=== PATIENT | male | born 1990 | race Caucasian/White ===

== ENCOUNTER 2022-09-20 11:26 | Emergency (ER) | payer MEDICARE, MEDICAID, SELFPAY ==
[2022-09-20] VITALS (8 sets, daily range): BP systolic 93–133; BP diastolic 64–81; PULSE 49–81; RESP 16; TEMP 36.4–36.9; O2SAT 94–100; BMI 26.6
--- NOTE | 2022-09-20 11:42 | PC.NURSE ---
DR BENITES AT BEDSIDE
--- NOTE | 2022-09-20 11:43 | HMH.EDGENADL ---
Discharge Plan Disposition Patient Disposition: Home, Self-Care Condition: Good Referrals Follow up/Referrals: Eddie Lara MD [Primary Care Provider] - See instructions Activity Restrictions/Add. Instructions Additional Instructions/Restrictions: Do not vape THC. Follow-up with primary care provider, call for appointment. Clinical Impressions Clinical Impression: Cannabis abuse with intoxication Discharge ED Provider: Ivan Torres General Adult HPI General Chief complaint: Altered Mental Status Stated complaint: AMS Time Seen by Provider: 09/20/22 11:30 History of Present Illness HPI narrative: History obtained from patient and state appointed guardian. He is brought in by ambulance from [facility] where he has apparently been for the past 3 to 4 months. Guardian states that yesterday evening he was impaired, falling asleep, could not stay awake, falling asleep in his food. He was sent out for drug screen which apparently showed Valium . He is also on Suboxone. He denies taking any other drugs except for Suboxone. He denies taking Valium or other benzodiazepines. He states he does not feel ill. He has no pain. He does feel drowsy. Related Data Allergies Allergy/AdvReac Type Severity Reaction Status Date / Time No Known Allergies Allergy Verified 09/20/22 14:15 [facility] Disclaimer: The information contained in this section may have been updated after the patient was seen, as this information can be updated by other users. Social History Smoking Status: Unknown if ever smoked ROS Obtained: Yes All systems reviewed & no additional complaints except as documented Constitutional Constitutional: Denies fever(s), Denies headache(s), Denies weakness and Reports other (Drowsy) ENT Ears, Nose, Mouth, and Throat: Denies headache(s), Denies nasal discharge and Denies sore throat Cardiovascular Cardiovascular: Denies chest pain Respiratory Respiratory: Denies shortness of breath and Denies cough Gastrointestinal Gastrointestingal: Denies abdominal pain, constipation, diarrhea or vomiting Genitourinary Male Genitourinary: Denies difficulty urinating and Denies flank pain Musculoskeletal Musculoskeletal: Denies numbness Neurologic Neurologic: Denies headache(s), Denies numbness and Denies weakness Physical Exam General General appearance: alert, in no apparent distress and other (Drowsy, speech mildly slurred. Lips and mucous membranes dry.) Head Head exam: atraumatic and normocephalic Eye Eye exam: Present normal appearance, PERRL and EOMI ENT ENT exam: Present mucous membranes dry Neck Neck exam: Present normal inspection and trachea midline Chest Chest inspection: Present normal inspection and symmetric chest wall rise Respiratory Respiratory exam: Present normal lung sounds bilaterally; Absent respiratory distress Cardiovascular Cardiovascular exam: Present regular rate, normal rhythm and normal heart sounds Abdominal Exam Abdominal exam: Present soft and normal bowel sounds; Absent distention, tenderness, guarding, rebound or rigidity Extremities Exam Extremities exam: Present normal inspection Neurological Exam Neurological exam: Present alert and oriented X3 Psychiatric Psychiatric exam: Present normal affect and normal mood Skin Skin exam: Present warm and dry Medical Decision Making Chuck Inquiry Pt receiving controlled substance: No Vital Signs: 09/20/22 11:26 09/20/22 12:00 09/20/22 12:30 Temperature 98.5 F Temperature Source Oral Pulse Rate 68 81 Pulse Rate [Radial] 70 Respiratory Rate 16 16 Blood Pressure 99/66 L 100/78 L Blood Pressure [Right Arm] 131/75 Blood Pressure Mean 82 82 Blood Pressure Mean [Right Arm] 93 Blood Pressure Source [Right Arm] Automatic Cuff 02 Sat by Pulse Oximetry 95 94 L 97 Oxygen Delivery Method Room Air 09/20/22 13:01 09/20/22 14:00 Temperature Temperature Source Pulse Rate 61 49 L Pulse Rate [R
[2022-09-20 12:06] LABS: Basophils # 0.1 K/mm3 (0-0.2); Basophils % 0.9 % (0.1-2.0); Eosinophils # 0.3 K/mm3 (0.0-0.4); Eosinophils % 3.7 % (0.1-12.0); Hematocrit 51.2 % (42.0-52.0); Hemoglobin 16.8 g/dL (14.1-18.0); Lymphocytes # 1.8 K/mm3 (0.7-4.5); Mean Corpuscular HGB Conc 32.7 g/dL (31.8-35.4); Mean Corpuscular Hemoglobin 30.8 pg (27.0-31.2); Mean Platelet Volume 7.8 fl (7.4-10.4); Monocytes # 0.5 K/mm3 (0.1-1.0); Monocytes % 6.3 % (1.7-9.3); Neutrophils # 5.1 K/mm3 (1.8-7.8); Neutrophils % 66.2 % (37.0-80.0); Platelet Count 199 K/mm3 (142-424); Red Blood Count 5.45 M/mm3 (4.60-6.20); Red Cell Distribution Width 12.6 % (11.5-17.5); White Blood Count 7.8 K/mm3 (4.8-10.8)
--- NOTE | 2022-09-20 12:13 | PC.NURSE ---
PT PROVIDED URINAL AT THIS TIME
[2022-09-20 12:30] LABS: Alanine Aminotransferase 95 U/L (12-78); Albumin Level 4.3 g/dl (3.5-5.0); Albumin/Globulin Ratio 1.5 (1.1-1.8); Alkaline Phosphatase 76 U/L (38-126); Anion Gap 9.1 mEq/L (5-15); Aspartate Amino Transferase 60 U/L (17-59); Bilirubin,Total 0.7 mg/dl (0.2-1.3); Blood Urea Nitrogen 13 mg/dl (9-20); Carbon Dioxide 30 mmol/L (22.0-30.0); Chloride 105 mmol/L (98-107); Creatinine Clearance Estimated 156 mL/min (50-200); Estimated Glomerular Filt Rate 131 ml/min (>60); GFR (African American) 158 ML/MIN (>60); Globulin 2.8 g/dL (1.3-3.2); Glucose 98 mg/dl (74-100); Potassium 4.2 mmoL/L (3.5-5.1); Sodium 139 mmol/L (136-145); Total Protein,Serum 7.1 g/dl (6.3-8.2)
[2022-09-20 12:32] LABS: Acetaminophen < 10 ug/ml (10-30); Salicylate < 1.0 mg/dL (2.0-20.0)
[2022-09-20 12:34] LABS: Ethyl Alcohol < 10 mg/dl (0-10)
[2022-09-20 12:44] LABS: Microscopic, Urine URINE MICROSCOPIC (MICROSCOPIC)
[2022-09-20 13:05] LABS: Appearance,Urine CLEAR (Clear); Blood, Urine Negative (Negative); Color,Urine YELLOW (Yellow); Glucose,Urine (UA) Negative (Negative); Ketones,Urine Negative (Negative); Leukocyte Esterase,Urine Negative (Negative); Nitrate,Urine Negative (Negative); Protein,Urine Negative (Negative)
[2022-09-20 13:09] LABS: Barbiturates Screen,Urine Negative ng/ml (<200)
[2022-09-20 13:10] LABS: Benzodiazepines Screen,Urine Negative ng/ml (<200)
[2022-09-20 13:11] LABS: Amphetamine/Metha Screen,Urine Negative ng/ml (<1000); Cannabinoid Screen,Urine Positive ng/ml (<50)
[2022-09-20 13:12] LABS: Cocaine Screen,Urine Negative ng/ml (<300); Methadone Screen,Urine Negative ng/ml (<300)
[2022-09-20 13:13] LABS: Opiate Screen,Urine Negative ng/ml (<300)
[2022-09-20 13:14] LABS: Phencyclidine Screen,Urine Negative ng/ml (<25)
[2022-09-20 13:29] LABS: Bilirubin,Urine Negative (Negative)
[2022-09-20 13:30] LABS: Bacteria,Urine Trace /lpf; Squamous Epithelial Cell,Urine Occasional #/hpf (0-5)
--- NOTE | 2022-09-20 15:37 | PC.NURSE ---
DR BENITES AT BEDSIDE TO REEVALUATE PT
--- NOTE | 2022-09-20 15:38 | PC.NURSE ---
REGULAR TRAY REQUESTED FROM DIETARY
--- NOTE | 2022-09-20 15:46 | PC.NURSE ---
dietary brought lunch tray to patient
--- NOTE | 2022-09-20 15:47 | PC.NURSE ---
pt able to ambulate to hallway with no issues
--- NOTE | 2022-09-20 15:48 | PC.NURSE ---
[facility] CONTACTED AT THIS TIME FOR PICK-UP
--- NOTE | 2022-09-20 16:19 | PC.NURSE ---
[facility] called for pt transport, they advised he couldnt be transported by them due to being a state guardian and it was against the law.
--- NOTE | 2022-09-20 16:23 | PC.NURSE ---
state guardian called for pt transport and advised her that [facility] would not transport. they were going to call the facility and speak with them.
--- NOTE | 2022-09-20 16:59 | PC.NURSE ---
spoke to guardian via telephone. she called for pts update with transportation. informed her ombudsman was taking pt back to facility.
== END 2022-09-20 16:55 | disposition home or self-care (01) ==
PROVIDERS: Emergency Provider Emergency Medicine; PCP Emergency Medicine
DX: F12.129 Cannabis abuse with intoxication, unspecified (principal)
CPT/HCPCS: 80053; 80305; 80329; 81001; 85025; 96360; 99285

== ENCOUNTER 2022-09-21 09:23 | Emergency (ER) | payer MEDICARE, MEDICAID, SELFPAY ==
[2022-09-21 09:23] VITALS: BP 112/71; PULSE 61; RESP 16; TEMP 37.1; O2SAT 94; BMI 31.3
--- NOTE | 2022-09-21 09:37 | HMH.EDGENADL ---
Discharge Plan Disposition Chief Complaint: Recheck/Abnormal Lab/Rx Clinical Impressions Clinical Impression: Active substance abuse Discharge ED Provider: Daniel Brock General Adult HPI General Chief complaint: Recheck/Abnormal Lab/Rx Stated complaint: concern for overdose Time Seen by Provider: 09/21/22 09:25 History of Present Illness HPI narrative: 32-year-old male presents again with substance abuse. He was apparently at [facility] and acting a little bit spacey so they sent him in again. He was seen here yesterday for the same thing and was positive for marijuana. At this time he denies taking any new substances. He denies chest pain shortness of air fever or chills nausea vomiting abdominal pain or any other concerns. No suicidal or homicidal ideation. Related Data Allergies Allergy/AdvReac Type Severity Reaction Status Date / Time No Known Allergies Allergy Verified 09/20/22 14:15 [facility] Disclaimer: The information contained in this section may have been updated after the patient was seen, as this information can be updated by other users. Social History Smoking Status: Unknown if ever smoked alcohol intake: former current occupational status: unemployed Travel in the last 8 weeks: None ROS Obtained: Yes All systems reviewed & no additional complaints except as documented Constitutional Constitutional: Denies fatigue, Denies fever(s) and Denies headache(s) Eyes Eyes: Denies dry eyes ENT Ears, Nose, Mouth, and Throat: Denies headache(s) and Denies lip swelling Cardiovascular Cardiovascular: Denies dyspnea Respiratory Respiratory: Denies cough and Denies dyspnea Gastrointestinal Gastrointestingal: Denies heartburn Genitourinary Male Genitourinary: Denies flank pain Musculoskeletal Musculoskeletal: Denies joint stiffness and Denies muscle cramps Integumentary/Breasts Skin/Breast: Denies redness and Denies rash Neurologic Neurologic: Denies headache(s) Endocrine Endocrine: Denies fatigue Hematologic/Lymphatic Henatologic/Lymphatic: Denies easy bleeding Allergic/Immunologic Allergic/Immunologic: Denies lip swelling Physical Exam General General appearance: alert and in no apparent distress Eye Eye exam: Present PERRL and EOMI ENT ENT exam: Present normal exam and normal oropharynx Neck Neck exam: Present normal inspection Chest Chest inspection: Present symmetric chest wall rise Respiratory Respiratory exam: Present normal lung sounds bilaterally; Absent respiratory distress Cardiovascular Cardiovascular exam: Present regular rate and normal rhythm Abdominal Exam Abdominal exam: Present soft; Absent distention, tenderness, guarding, rebound, Baker's sign or tenderness at McBur[place]'s Point Rectal Exam Rectal exam: Present deferred Back Exam Back exam: Present normal inspection Neurological Exam Neurological exam: Present oriented X3, CN II-XII intact, normal gait and motor sensory deficit; Absent alert Psychiatric Psychiatric exam: Present normal affect and normal mood Skin Skin exam: Present warm, dry and intact Lymphatic Lymphatic Findings: no adenopathy Medical Decision Making Medical Records Medical records reviewed: Yes I reviewed the patient's medical records. Chuck Inquiry Pt receiving controlled substance: No Chuck was queried for this patient: No Vital Signs: 09/21/22 09:23 09/21/22 14:22 Temperature 98.7 F Temperature Source Oral Pulse Rate 71 Pulse Rate [Right Radial] 61 Respiratory Rate 16 16 Blood Pressure 125/79 Blood Pressure [Right Arm] 112/71 Blood Pressure Mean 87 Blood Pressure Mean [Right Arm] 84 Blood Pressure Source [Right Arm] Automatic Cuff Blood Pressure Position [Right Arm] Sitting 02 Sat by Pulse Oximetry 94 L 100 Oxygen Delivery Method Room Air Room Air Lab Data Lab Results 09/21/22 09:41: Urine Opiates Screen Negative, Urine Methadone Screen Negative, Ur [place]bit[place]
--- NOTE | 2022-09-21 09:49 | PC.NURSE ---
breakfast tray ordered for pt
--- NOTE | 2022-09-21 10:05 | PC.NURSE ---
pt given meal tray
[2022-09-21 11:59] LABS: Barbiturates Screen,Urine Negative ng/ml (<200)
[2022-09-21 12:00] LABS: Benzodiazepines Screen,Urine Negative ng/ml (<200)
[2022-09-21 12:11] LABS: Cocaine Screen,Urine Negative ng/ml (<300)
--- NOTE | 2022-09-21 13:00 | PC.NURSE ---
per lab having difficulty with analyzer causing delay in results
--- NOTE | 2022-09-21 13:00 | PC.NURSE ---
called dietary for tray for pt
[2022-09-21 13:50] LABS: Amphetamine/Metha Screen,Urine Negative ng/ml (<1000); Methadone Screen,Urine Negative ng/ml (<300); Opiate Screen,Urine Negative ng/ml (<300); Phencyclidine Screen,Urine Negative ng/ml (<25)
[2022-09-21 13:51] LABS: Cannabinoid Screen,Urine Positive ng/ml (<50)
[2022-09-21 14:22] VITALS: BP 125/79; PULSE 71; RESP 16; O2SAT 100
[2022-09-21 15:00] VITALS: BP 121/76; PULSE 61; RESP 20; O2SAT 99
--- NOTE | 2022-09-21 15:00 | PC.NURSE ---
pt up walking around in the room.
--- NOTE | 2022-09-21 15:35 | PC.NURSE ---
attempting to call ric dorman, no answer
--- NOTE | 2022-09-21 15:48 | PC.NURSE ---
placed call to [facility] due to no answer at [facility]
[2022-09-21 16:00] VITALS: BP 119/74; PULSE 64; RESP 20; O2SAT 98
--- NOTE | 2022-09-21 16:43 | PC.NURSE ---
repeated calls to [facility] and [facility] with no answer at [facility] said they would see what they could do. Called for state guardian, no answer, called for Vidhi Burk number
[2022-09-21 17:14] VITALS: BP 120/78; PULSE 63; RESP 20; TEMP 37.1; O2SAT 98
== END 2022-09-21 17:17 | disposition home or self-care (01) ==
PROVIDERS: Emergency Provider Emergency Medicine; PCP Emergency Medicine
DX: F19.90 Other psychoactive substance use, unspecified, uncomplicated (principal)
CPT/HCPCS: 80305; 99283

== ENCOUNTER → 2023-07-11 14:24 | Outpatient (CLI) | payer MEDICARE, MEDICAID, SELFPAY ==
--- NOTE | 2023-07-11 14:31 | XR_ITS ---
FINAL REPORT TECHNIQUE: Right hand 2 views CLINICAL HISTORY: right hand fx COMPARISON: None FINDINGS: RIGHT HAND: AP and oblique views of the right hand reveal a severely displaced boxer's fracture of the fifth metacarpal, possibly subacute. Would correlate with patient history. No other significant bony abnormality is identified. IMPRESSION: Severely displaced boxer's fracture of the fifth metacarpal, possibly subacute. Correlate with patient history. Reviewed, Interpreted and Dictated by Isabela Lopez MD Transcribed by Mis Jean Authenticated and [facility]
== END ==
LOC: RAD 14:29
PROVIDERS: Visit Provider Orthopaedic Surgery
DX: S62.91XA Unspecified fracture of right hand, initial encounter for closed fracture (principal); M79.641 Pain in right hand
CPT/HCPCS: 73120